=== PATIENT | female | born 1975 | race African-American/Black ===

== ENCOUNTER 2016-08-17 19:48 | Emergency (ER) | payer OTHER ==
[~2016-08-17] VITALS: Ht 165.1 cm; Wt 54.4 kg
[~2016-08-17 19:48] MED LIST: ACETAMINOPHEN-1 EAC1 ORAL; AZITHROMYCIN250 MG ORAL; FERROUS SULFAT325 MG PO; FLEXERIL10 MG PO; IBUPROFEN600 MG ORAL; NAPROXEN375 MG PO; NEXAFED30 MG ORAL; NKM; NORCO 5-325 TA1 EACH ORAL; PERCOCET 5-3251 EACH ORAL; TRAMADOL HCL50 MG ORAL; VICODIN 5-5001 EACH PO
[2016-08-17] MEDS ORDERED: Ketorolac 30mg Inj IM ONE (20:15)
[2016-08-17] MEDS ORDERED: Methocarbamol 750mg tab ORAL ONE (20:15)
[2016-08-17 20:45] VITALS: BP 115/76
[2016-08-17] MEDS ORDERED: ROBAXIN-750750 MG PO (21:03)
[2016-08-17] MEDS ORDERED: IBUPROFEN600 MG ORAL (21:03)
[2016-08-17 21:05] VITALS: BP 115/76
--- NOTE | 2016-08-17 21:24 | Emergency Room Report ---
History of Present Illness General Chief Complaint: Dyspnea/Respdistress Source: Patient Present Illness HPI The patient is a 40-year-old female presenting with back pain which began this morning. The patient states the pain is worse with deep breaths and touch. Pain is described as an 8/10 sharp sensation it does not radiate from the mid back. The patient denies any known reason for the pain including any new activities or injury. The patient has not tried any medications for this. She denies any medical history including DVT. Patient denies other symptoms including N, V, F, chills, cough, hemoptysis. Pt denies recent travel, OCP use, long periods of inactivity. Allergies: Coded Allergies: No Known Allergies (Unverified , 03/13/12) Patient History Past Medical History: see triage record Pertinent Family History: none Last Menstrual Period: 08/02/16 Now: No Reviewed Nursing Documentation: PMH: Agreed, PSxH: Agreed Nursing Documentation-PMH Past Medical History: No Stated History Review of Systems All Other Systems: negative except mentioned in HPI Physical Exam Vital Signs Date Time Temp Pulse Resp B/P Pulse Ox O2 Delivery O2 Flow Rate FiO2 08/17/16 19:54 98.2 70 16 115/76 100 Room Air Sp02 EP Interpretation: reviewed, normal General Appearance: no apparent distress, alert, GCS 15, non-toxic Head: normocephalic, atraumatic Eyes: bilateral eye PERRL, bilateral eye normal inspection ENT: hearing grossly normal, normal pharynx, no angioedema, normal voice Neck: full range of motion, supple/symm/no masses Respiratory: chest non-tender, lungs clear, normal breath sounds, no respiratory distress, no accessory muscle use, no wheezing, speaking full sentences Cardiovascular #1: regular rate, rhythm, no edema Musculoskeletal: back normal, gait/station normal, normal range of motion, no calf tenderness, tender - soft touch TTP over bilat thoracic paraspinous muscles Neurologic: alert, oriented x3, responsive, motor strength/tone normal, sensory intact, normal gait, speech normal Psychiatric: judgement/insight normal, memory normal, mood/affect normal, no suicidal/homicidal ideation Medical Decision Making PA Attestation Dr. Marshall is my supervising physician. Patient management was discussed with my supervising physician Diagnostic Impression: Primary Impression: Muscle strain ER Course The patient is a 40-year-old female presenting with back pain which began this morning. Differential diagnoses considered but not limited to: Bronchitis, pneumonia, PE , muscle strain Physical exam: Heart rate within normal limits. No tachypnea. Afebrile. No apparent distress. Lungs are clear to auscultation bilaterally. No respiratory distress. There is tenderness with soft palpation over the thoracic paraspinous muscles. No obvious deformity. No discoloration Wells score of 0 Chest x-ray is unremarkable The patient is given Toradol and Robaxin for pain and is feeling better Patient discharged home with a prescription for Robaxin and Motrin. ER precautions are given Chest X-Ray Diagnostic Results EP Interpretation: Yes Findings: no consolidation, no effusion, no pneumothorax, no acute cardiopulmonary disease Number of Views: 1 PA Scribe Text I am acting as scribe for my supervising physician. My supervising physician's interpretation of the chest xrays are there is no consolidation, no effusion, no acute cardiopulmonary disease, no pneumothorax Last Vital Signs Date Time Temp Pulse Resp B/P Pulse Ox O2 Delivery O2 Flow Rate FiO2 08/17/16 21:05 98.2 16 115/76 100 Room Air 08/17/16 20:45 70 Status: improved Disposition: HOME, SELF-CARE Condition: Improved Scripts Ibuprofen* (MOTRIN*) 600 Mg Tablet 600 MG ORAL Q8H Y for For Pain, #30 TAB 0 Refills Prov: NIC PERRY.A. 08/17/16 Methocarbamol* (ROBAXIN-750*) 750 Mg Tablet 750 MG PO TID, #21 TAB 0 Refills Prov: NIC PERRY.Ofe 08/17/16 Patient Instructions: Muscle Strain Additional Instructions: I discussed my findings with the patient. All questions and concerns have been answered. Treatment and medication compliance have been addressed. I advised the patient that they need to follow up with PMD in 3-5 days. Return to ED if symptoms worsen, new symptoms arise, or if needed for any reason. Patient verbalized understanding of discharge instructions. NIC PERRY Aug 17, 2016 21:24
--- NOTE | 2016-08-18 10:06 | Diagnostic Imaging Report ---
Indication: PAIN Technique: XRAY CHEST 1 V Comparison: None. Findings: The cardiomediastinal silhouette is normal. The lungs are clear. There is no evidence of pleural fluid. The bones are unremarkable. Impression: Normal chest.
== END 2016-08-17 21:05 | disposition home or self-care (01) ==
LOC: EMR 20:51
DX: S29.012A Strain of muscle and tendon of back wall of thorax, initial encounter (principal); X58.XXXA Exposure to other specified factors, initial encounter; Y93.9 Activity, unspecified; Y92.9 Unspecified place or not applicable
CPT/HCPCS: 71010; 96372; 99284; J1885

== ENCOUNTER 2017-03-20 00:47 | Emergency (ER) | payer MEDICAID, OTHER ==
[~2017-03-20] VITALS: Ht 165.1 cm; Wt 54.4 kg
[~2017-03-20 00:47] MED LIST changes: +ROBAXIN-750750 MG PO
[2017-03-20 01:41] VITALS: BP 115/82
[2017-03-20 02:14] LABS: BASOPHILS % (AUTO) 0.8 % (0.0-2.0); EOSINOPHILS % (AUTO) 5.1 % (0.0-3.0); LYMPHOCYTES % (AUTO) 39.1 % (20.0-45.0); MEAN CORPUSCULAR HEMOGLOBIN 29.1 PG (27.0-31.0); MEAN CORPUSCULAR VOLUME 91 FL (80-99); MEAN PLATELET VOLUME 7.4 FL (6.5-10.1); MONOCYTES % (AUTO) 10.6 % (1.0-10.0); NEUTROPHILS % (AUTO) 44.4 % (45.0-75.0); PLATELET COUNT 261 K/UL (150-450); RED BLOOD COUNT 3.81 M/UL (4.20-5.40); RED CELL DISTRIBUTION WIDTH 12.1 % (11.6-14.8); WHITE BLOOD COUNT 4.7 K/UL (4.8-10.8)
--- NOTE | 2017-03-20 02:33 | Emergency Room Report ---
History of Present Illness General Chief Complaint: Pain Source: Patient Present Illness HPI A 41-year-old female with a history of heavy menstrual bleeding with anemia resulting from it. She is currently on control. She presents with chief complaint of right breast pain from axilla to the nipple area. On and off. Mild pain now. Onset for the last 4 days. No fever or chills. Her breast slightly engorged bilaterally. Also more sweating underneath the breasts. Allergies: Coded Allergies: No Known Allergies (Unverified , 03/13/12) Patient History Past Medical History: see triage record, old chart reviewed Past Surgical History: other Pertinent Family History: none Social History: Denies: smoking Last Menstrual Period: 4 months Now: No Immunizations: other Reviewed Nursing Documentation: PMH: Agreed, PSxH: Agreed Nursing Documentation-PMH Past Medical History: No Stated History Review of Systems Eye: Denies: eye pain, blurred vision ENT: Denies: ear pain, nose congestion, throat swelling Respiratory: Denies: cough, shortness of breath Cardiovascular: Denies: chest pain, palpitations Gastrointestinal: Denies: abdominal pain, diarrhea, nausea, vomiting Musculoskeletal: Denies: back pain, joint pain Skin: Denies: rash Neurological: Denies: headache, numbness Endocrine: Denies: increased thirst, increased urine Hematologic/Lymphatic: Denies: easy bruising All Other Systems: negative except mentioned in HPI Physical Exam Vital Signs Date Time Temp Pulse Resp B/P (MAP) Pulse Ox O2 Delivery O2 Flow Rate FiO2 03/20/17 01:08 98.1 82 17 115/82 99 Room Air vitals normal Sp02 EP Interpretation: reviewed, normal General Appearance: well appearing, no apparent distress, alert Head: normocephalic, atraumatic Eyes: bilateral eye PERRL, bilateral eye EOMI ENT: hearing grossly normal, normal pharynx Neck: full range of motion, supple, no meningismus Respiratory: chest non-tender, lungs clear, normal breath sounds, other - Breast exams: Exam done with female nurse as supervisor veneer. No adenopathy. No nipple retraction. No redness. No tenderness. Normal exam of both breasts. Cardiovascular #1: regular rate, rhythm, no murmur Gastrointestinal: normal bowel sounds, non tender, no mass, no organomegaly, no bruit, non-distended Musculoskeletal: back normal, gait/station normal, normal range of motion Psychiatric: mood/affect normal Skin: warm/dry Medical Decision Making Diagnostic Impression: Primary Impression: Anemia Qualified Codes: D64.9 - Anemia, unspecified Additional Impression: Breast pain in female ER Course Patient presents with breast pain. No evidence of any abnormality on my exam. She may benefit from a mammography. This can be done as an outpatient. No evidence of infection. Could also be hormonal. Last Vital Signs Date Time Temp Pulse Resp B/P (MAP) Pulse Ox O2 Delivery O2 Flow Rate FiO2 03/20/17 01:41 98.1 88 17 115/82 99 Room Air Status: improved Disposition: HOME, SELF-CARE Condition: Stable Referrals: [facility] (PCP) Patient Instructions: PAIN, Uncertain Cause (Acute) Additional Instructions: followup with your Dr. in 7 days. You may benefit from another mammogram. Return if worse. ISIDORO GAMING M.D. Mar 20, 2017 02:33
[2017-03-20 02:36] VITALS: BP 115/82
== END 2017-03-20 02:36 | disposition home or self-care (01) ==
LOC: EMR 01:30
DX: D64.9 Anemia, unspecified (principal); N64.4 Mastodynia; N92.0 Excessive and frequent menstruation with regular cycle
CPT/HCPCS: 36415; 85025; 99282

== ENCOUNTER 2017-04-05 09:09 | Emergency (ER) | payer MEDICAID, OTHER ==
[~2017-04-05] VITALS: Ht 165.1 cm; Wt 54.4 kg
[2017-04-05] MEDS ORDERED: ZOFRAN ODT4 MG ORAL (10:16)
[2017-04-05] MEDS ORDERED: IBUPROFEN600 MG ORAL (10:16)
[2017-04-05 10:27] VITALS: BP 132/70
--- NOTE | 2017-04-05 15:20 | Emergency Room Report ---
History of Present Illness General Chief Complaint: Upper Respiratory Illness Source: Patient Present Illness HPI 41 yo f no sig pmhx p/w 2 weeks of cough, runny nose, now with 1 day of n/v yetserday. clear nasal discharge, non productive cough. has been taking vitamins to help. states she wants to feel better to be able to go to work. denies fever chills cp sob. 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) no recent travel Allergies: Coded Allergies: No Known Allergies (Unverified , 03/13/12) Patient History Past Medical History: see triage record Past Surgical History: none Pertinent Family History: none Last Menstrual Period: 2-3 months Now: No Reviewed Nursing Documentation: PMH: Agreed, PSxH: Agreed Review of Systems All Other Systems: negative except mentioned in HPI Physical Exam Vital Signs Date Time Temp Pulse Resp B/P (MAP) Pulse Ox O2 Delivery O2 Flow Rate FiO2 04/05/17 09:13 98.1 94 18 123/71 98 Room Air Sp02 EP Interpretation: reviewed, normal General Appearance: normal inspection, well appearing, no apparent distress, alert, GCS 15, non-toxic Head: normocephalic, atraumatic Eyes: bilateral eye normal inspection, bilateral eye PERRL, bilateral eye EOMI ENT: normal ENT inspection, normal pharynx, normal voice, moist mucus membranes Neck: normal inspection, full range of motion, supple Respiratory: normal inspection, lungs clear, normal breath sounds, no respiratory distress, no retraction, no wheezing, speaking full sentences, chest symmetrical Cardiovascular #1: normal inspection, regular rate, rhythm, no edema, normal capillary refill Cardiovascular #2: 2+ radial (R), 2+ radial (L) Gastrointestinal: normal inspection, non tender, soft, non-distended, no guarding Musculoskeletal: normal inspection, back normal, normal range of motion, non- tender Neurologic: normal inspection, alert, oriented x3, responsive, motor strength/ tone normal, sensory intact, normal gait, speech normal Psychiatric: normal inspection, judgement/insight normal, memory normal Skin: normal inspection, normal color, no rash, warm/dry, well hydrated, normal turgor Medical Decision Making Diagnostic Impression: Primary Impression: Viral syndrome ER Course 41 yo f with 2 weeks of cough runny nose, n/v x 2days appears well nontoxic not c/w pneumonia -- lungs clear ER course stable in ED Dispo: DCed home with short course of zofran, motrin fu with pmd in 1 week Last Vital Signs Date Time Temp Pulse Resp B/P (MAP) Pulse Ox O2 Delivery O2 Flow Rate FiO2 04/05/17 10:27 98.2 77 18 132/70 97 Room Air Disposition: HOME, SELF-CARE Condition: Stable Scripts Ibuprofen* (MOTRIN*) 600 Mg Tablet 600 MG ORAL Q8H Y for For Pain, #30 TAB 0 Refills Prov: Daxa Ruiz M.D. 04/05/17 Ondansetron Odt* (ZOFRAN ODT*) 4 Mg Tab.rapdis 4 MG ORAL Q6H Y for Nausea & Vomiting, #5 TAB 0 Refills Prov: Daxa Ruiz M.D. 04/05/17 Patient Instructions: Viral Respiratory Infection Daxa Ruiz M.D. Apr 05, 2017 15:20
== END 2017-04-05 10:27 | disposition home or self-care (01) ==
LOC: EMR 09:35
DX: B34.9 Viral infection, unspecified (principal)
CPT/HCPCS: 99284

== ENCOUNTER 2017-04-17 11:14 | Emergency (ER) | payer OTHER ==
[~2017-04-17] VITALS: Ht 165.1 cm; Wt 54.4 kg
[~2017-04-17 11:14] MED LIST changes: +ZOFRAN ODT4 MG ORAL
[2017-04-17] MEDS ORDERED: Metoclopramide 10mg/2ml Inj IVP ONE (11:45)
[2017-04-17] MEDS ORDERED: Ketorolac 30mg Inj IV ONE (12:00)
[2017-04-17 12:14] LABS: HEMATOCRIT 39.9 % (37.0-47.0); MEAN CORPUSCULAR VOLUME 93 FL (80-99); PLATELET COUNT 305 K/UL (150-450); RED CELL DISTRIBUTION WIDTH 12.3 % (11.6-14.8); WHITE BLOOD COUNT 10.5 K/UL (4.8-10.8)
[2017-04-17 12:25] LABS: ALANINE AMINOTRANSFERASE 16 U/L (12-78); ALBUMIN 3.7 G/DL (3.4-5.0); ALKALINE PHOSPHATASE 63 U/L (46-116); ANION GAP 9 mmol/L (5-15); ASPARTATE AMINO TRANSFERASE 20 U/L (15-37); BILIRUBIN,TOTAL 0.4 MG/DL (0.2-1.0); BLOOD UREA NITROGEN 13 mg/dL (7-18); CALCIUM 9.1 MG/DL (8.5-10.1); CARBON DIOXIDE 27 MMOL/L (21-32); CHLORIDE 106 MMOL/L (98-107); CREATININE 0.9 MG/DL (0.55-1.30); SODIUM 142 MMOL/L (136-145)
[2017-04-17] MEDS ORDERED: ZOFRAN ODT4 MG ORAL (12:46)
[2017-04-17 12:57] VITALS: BP 126/87
[2017-04-17 12:59] VITALS: BP 126/87
--- NOTE | 2017-04-18 08:39 | Emergency Room Report ---
History of Present Illness General Chief Complaint: Vomiting Source: Patient, Medical Record Present Illness HPI Patient presents with complaints of nausea vomiting Patient reports that she ate a fruit, just before the symptoms started Vomited several times This happened this afternoon Patient has not developed a headache as well Denies any neck pain or photophobia Denies any chest pain or shortness of breath denies any lower abdominal pain denies any diarrhea Allergies: Coded Allergies: No Known Allergies (Unverified , 03/13/12) Patient History Past Medical History: see triage record Pertinent Family History: none Last Menstrual Period: on control pill Reviewed Nursing Documentation: PMH: Agreed, PSxH: Agreed Nursing Documentation-PMH Past Medical History: No History, Except For Review of Systems All Other Systems: negative except mentioned in HPI Physical Exam Vital Signs Date Time Temp Pulse Resp B/P (MAP) Pulse Ox O2 Delivery O2 Flow Rate FiO2 04/17/17 11:26 98.2 101 18 126/87 100 Room Air Sp02 EP Interpretation: reviewed, normal General Appearance: well appearing, no apparent distress Head: normocephalic, atraumatic Eyes: bilateral eye PERRL, bilateral eye EOMI ENT: hearing grossly normal, normal pharynx, TMs + canals normal, uvula midline Neck: full range of motion, supple, no meningismus, no bony tend Respiratory: lungs clear, normal breath sounds, no rhonchi, no respiratory distress, no retraction, no accessory muscle use Cardiovascular #1: normal peripheral pulses, regular rate, rhythm, no edema, no gallop, no JVD, no murmur Gastrointestinal: normal bowel sounds, non tender, soft, no mass, no organomegaly, non-distended, no guarding, no hernia, no pulsatile mass, no rebound Genitourinary: no CVA tenderness Musculoskeletal: normal inspection Neurologic: oriented x3, responsive, filter washer and presser III-XII nml as tested, motor strength/ tone normal, sensory intact Psychiatric: mood/affect normal Skin: normal color, no rash, warm/dry, palpation normal Lymphatic: normal inspection, no adenopathy Medical Decision Making Diagnostic Impression: Primary Impression: Vomiting ER Course With the history exam and presentation, multiple differentials considered, including but not limited to appendicitis, gastritis, cholecystitis, diverticulitis Patient's blood work is appropriate Patient has done better with acute intervention it appears the headache is likely related to the vomiting as well And the patient will have close followup Labs Test 04/17/17 11:45 White Blood Count 10.5 K/UL (4.8-10.8) Red Blood Count 4.30 M/UL (4.20-5.40) Hemoglobin 12.0 G/DL (12.0-16.0) Hematocrit 39.9 % (37.0-47.0) Mean Corpuscular Volume 93 FL (80-99) Mean Corpuscular Hemoglobin 28.0 PG (27.0-31.0) Mean Corpuscular Hemoglobin Concent 30.2 G/DL (32.0-36.0) Red Cell Distribution Width 12.3 % (11.6-14.8) Platelet Count 305 K/UL (150-450) Mean Platelet Volume 6.6 FL (6.5-10.1) Neutrophils (%) (Auto) % (45.0-75.0) Lymphocytes (%) (Auto) % (20.0-45.0) Monocytes (%) (Auto) % (1.0-10.0) Eosinophils (%) (Auto) % (0.0-3.0) Basophils (%) (Auto) % (0.0-2.0) Differential Total Cells Counted 100 Neutrophils % (Manual) 86 % (45-75) Lymphocytes % (Manual) 8 % (20-45) Monocytes % (Manual) 4 % (1-10) Eosinophils % (Manual) 1 % (0-3) Basophils % (Manual) 0 % (0-2) Band Neutrophils 1 % (0-8) Platelet Estimate Adequate Platelet Morphology Normal Red Blood Cell Morphology Normal Sodium Level 142 MMOL/L (136-145) Potassium Level 4.0 MMOL/L (3.5-5.1) Chloride Level 106 MMOL/L (98-107) Carbon Dioxide Level 27 MMOL/L (21-32) Anion Gap 9 mmol/L (5-15) Blood Urea Nitrogen 13 mg/dL (7-18) Creatinine 0.9 MG/DL (0.55-1.30) Estimat Glomerular Filtration Rate > 60 mL/min (>60) Glucose Level 88 MG/DL (74-106) Calcium Level 9.1 MG/DL (8.5-10.1) Total Bilirubin 0.4 MG/DL (0.2-1.0) Aspartate Amino Transf (AST/SGOT) 20 U/L (15-37) Alanine Aminotransferase (ALT/SGPT) 16 U/L (12-78) Alkaline Phosphatase 63 U/L (46-116) Total Protein 7.5 G/DL (6.4-8.2) Albumin 3.7 G/DL (3.4-5.0) Globulin 3.8 g/dL Albumin/Globulin Ratio 1.0 (1.0-2.7) Lipase 125 U/L (73-393) Last Vital Signs Date Time Temp Pulse Resp B/P (MAP) Pulse Ox O2 Delivery O2 Flow Rate FiO2 04/17/17 12:59 98.2 78 18 126/87 100 Room Air Status: improved Disposition: HOME, SELF-CARE Condition: Improved Scripts Ondansetron Odt* (ZOFRAN ODT*) 4 Mg Tab.rapdis 4 MG ORAL Q6H Y for Nausea & Vomiting, #15 TAB 0 Refills Prov: MASON NELSON D.O. 04/17/17 Referrals: [facility] (PCP) Patient Instructions: Nausea and Vomiting, Adult Additional Instructions: Patient is provided with the discharge instructions notified to follow up with primary doctor in the next 2-3 days otherwise return to the er with any worsening symptoms. Please note that this report is being documented using [employer] technology. This can lead to erroneous entry secondary to incorrect interpretation by the dictating instrument. MASON NELSON D.O. Apr 18, 2017 08:39
== END 2017-04-17 13:01 | disposition home or self-care (01) ==
LOC: EMR 12:27
DX: R11.2 Nausea with vomiting, unspecified (principal)
CPT/HCPCS: 36415; 80053; 83690; 85007; 85025; 96361; 96374; 99284; J2765

== ENCOUNTER 2017-11-26 14:28 | Emergency (ER) | payer MEDICAID, OTHER ==
[~2017-11-26] VITALS: Ht 165.1 cm; Wt 54.4 kg
[2017-11-26 14:58] VITALS: BP 137/84
[2017-11-26] MEDS ORDERED: Albuterol ud Inhalation HHN ONE (15:00)
[2017-11-26] MEDS ORDERED: Ipratropium 0.02% Inh Soln 2.5ml UD HHN ONE (15:00)
[2017-11-26] MEDS ORDERED: Acetaminophen 500mg (ES) tab ORAL ONE (15:15)
[2017-11-26] MEDS ORDERED: ALBUTEROL SULF8.5 GM INH (15:50)
[2017-11-26] MEDS ORDERED: AMOXICILLIN500 MG ORAL (15:50)
[2017-11-26] MEDS ORDERED: PREDNISONE20 MG ORAL (15:50)
[2017-11-26] MEDS ORDERED: PROMETHAZINE-C118 M1 ORAL (15:50)
[2017-11-26 16:06] VITALS: BP 125/86
[2017-11-26 16:07] VITALS: BP 137/84
--- NOTE | 2017-11-26 17:23 | Emergency Room Report ---
History of Present Illness General Chief Complaint: Dyspnea/Respdistress Source: Patient Present Illness HPI 42-year-old female presents ED for evaluation. States that for 1 month she has had a cough, chest tightness. Cough is productive with yellowish phlegm. States cough is worse at night. Denies fevers or chills. Denies sick contacts or recent travel. States she is undergoing a lot of stress recently as 2 of her sisters have recently . No other aggravating relieving factors. Denies any other associated symptoms Allergies: Coded Allergies: No Known Allergies (Unverified , 03/13/12) Patient History Past Medical History: none Past Surgical History: none Pertinent Family History: none Social History: Denies: smoking, alcohol use, drug use Last Menstrual Period: 10/26/17 Now: No Immunizations: UTD Reviewed Nursing Documentation: PMH: Agreed; PSxH: Agreed Review of Systems All Other Systems: negative except mentioned in HPI Physical Exam Vital Signs Date Time Temp Pulse Resp B/P (MAP) Pulse Ox O2 Delivery O2 Flow Rate FiO2 11/26/17 13:15 11/26/17 13:15 11/26/17 14:35 98.6 137/84 98.6 Sp02 EP Interpretation: reviewed, normal General Appearance: no apparent distress, alert, GCS 15, non-toxic Head: normocephalic Eyes: bilateral eye normal inspection, bilateral eye PERRL ENT: normal ENT inspection Neck: normal inspection Respiratory: chest non-tender, lungs clear, decreased breath sounds, speaking full sentences Cardiovascular #1: regular rate, rhythm, no edema Gastrointestinal: normal inspection Rectal: deferred Genitourinary: no CVA tenderness Musculoskeletal: normal inspection Neurologic: alert, oriented x3, responsive, motor strength/tone normal, sensory intact, speech normal Psychiatric: normal inspection Skin: normal inspection Lymphatic: normal inspection Medical Decision Making Diagnostic Impression: Primary Impression: Atypical pneumonia ER Course Hospital Course 42-year-old female presents ED complaining of cough, chest tightness x 1 month Differential diagnoses include: URI, pharyngitis, otitis media, asthma Clinical course Patient placed on stretcher. After initial history, physical exam reveals a female in no acute distress. Bilateral TM unremarkable. No pharyngeal erythema. No tonsillar exudates. No lymphadenopathy. slightly reduced breath sounds. i ordered nebs, prednisone. on reassessment she feels better.breath sounds improved given prolonged symptoms (1 month) we will treat as atypical pneumonia Diagnosis - atypical pneumonia Stable and discharged home with Rx albuterol, prednisone, promethazine/codeine, amoxicillin. Instructed to followup with PMD. Return to ED if symptoms recur or worsen Last Vital Signs Date Time Temp Pulse Resp B/P (MAP) Pulse Ox O2 Delivery O2 Flow Rate FiO2 11/26/17 16:07 98.6 18 137/84 100 Room Air 98.6 11/26/17 16:06 80 Status: improved Disposition: HOME, SELF-CARE Condition: Stable Scripts Codeine/Promethazine Hcl* (PROMETHAZINE-CODEINE SYRUP*) 118 Ml Syrup 5 ML ORAL Q6H PRN for For Cough, #118 ML 0 Refills Prov: Glenn Marshall MD 11/26/17 Albuterol Sulfate* (ALBUTEROL SULFATE MDI*) 8.5 Gm Hfa.aer.ad 2 PUFF INH Q6H, #1 EA 0 Refills Prov: Glenn Marshall MD 11/26/17 Prednisone* (PREDNISONE*) 20 Mg Tablet 40 MG ORAL DAILY, #10 TAB Prov: Glenn Marshall MD 11/26/17 Amoxicillin* (AMOXIL*) 500 Mg Capsule 500 MG ORAL THREE TIMES A DAY, #21 CAP Prov: Glenn Marshall MD 11/26/17 Patient Instructions: Community-Acquired Pneumonia, Adult, Rqnr-rl-Soca Glenn Marshall MD Nov 26, 2017 17:23
== END 2017-11-26 16:10 | disposition home or self-care (01) ==
LOC: EMR 15:10
DX: J18.9 Pneumonia, unspecified organism (principal)
CPT/HCPCS: 94640; 94664; 99284; J7512

== ENCOUNTER 2018-02-14 08:35 | Emergency (ER) | payer MEDICAID, OTHER ==
[~2018-02-14] VITALS: Ht 165.1 cm; Wt 56.7 kg
[~2018-02-14 08:35] MED LIST changes: +ALBUTEROL SULF8.5 GM INH; +AMOXICILLIN500 MG ORAL; +PREDNISONE20 MG ORAL; +PROMETHAZINE-C118 M1 ORAL
[2018-02-14 08:49] VITALS: BP 119/78
[2018-02-14 09:52] LABS: APPEARANCE,URINE CLEAR; BILIRUBIN, URINE NEGATIVE (NEGATIVE); COLOR,URINE PALE YELLOW; GLUCOSE, URINE (UA) NEGATIVE (NEGATIVE); KETONES,URINE NEGATIVE (NEGATIVE); LEUKOCYTE ESTERASE ,URINE 1+ (NEGATIVE); NITRITE,URINE NEGATIVE (NEGATIVE); PH,URINE 5 (4.5-8.0); PROTEIN,URINE NEGATIVE (NEGATIVE); UROBILINOGEN,URINE NORMAL MG/DL (0.0-1.0)
[2018-02-14 10:29] VITALS: BP 122/71
--- NOTE | 2018-02-14 11:09 | Emergency Room Report ---
History of Present Illness General Chief Complaint: Female Urogenital Problems Source: Patient Present Illness HPI Patient is a 42-year-old female presented after increased urinary frequency. Patient was having increased a right flank pain for the past few days. Patient reports having similar symptoms in the past. She reports having some previous diagnosis of urinary stones. She denies any fever she denies any vomiting. She reports having pain to the right lower abdomen which did not radiate. She denies having any vomiting or diarrhea she denies recent travel. The pain radiated to her back. Allergies: Coded Allergies: No Known Allergies (Unverified , 03/13/12) Patient History Past Medical History: see triage record Last Menstrual Period: 01/26/18 Reviewed Nursing Documentation: PMH: Agreed; PSxH: Agreed Nursing Documentation-PMH Past Medical History: No Stated History Review of Systems All Other Systems: negative except mentioned in HPI Physical Exam Vital Signs Date Time Temp Pulse Resp B/P (MAP) Pulse Ox O2 Delivery O2 Flow Rate FiO2 02/14/18 08:40 98.1 84 18 119/78 99 Room Air 98.1 Sp02 EP Interpretation: reviewed, normal General Appearance: normal inspection, well appearing, no apparent distress, alert, GCS 15, non-toxic Head: atraumatic ENT: normal ENT inspection, hearing grossly normal, normal voice Neck: normal inspection, full range of motion, supple, no bony tend Respiratory: normal inspection, lungs clear, normal breath sounds, no respiratory distress, no retraction, no wheezing Cardiovascular #1: regular rate, rhythm, no edema Gastrointestinal: normal inspection, normal bowel sounds, soft, no guarding, no hernia Genitourinary: no CVA tenderness Musculoskeletal: normal inspection, back normal, normal range of motion Neurologic: normal inspection, alert, oriented x3, responsive, events specialist III-XII nml as tested, speech normal Psychiatric: normal inspection, judgement/insight normal, mood/affect normal Skin: normal inspection, normal color, no rash Medical Decision Making Diagnostic Impression: Primary Impression: Hematuria ER Course Patient presented for abdominal pain. Differential diagnoses included ischemic bowel, appendicitis, perforated viscus, abdominal aortic aneurysm, inferior myocardial infarction, viral gastroenteritis Patient has a benign exam and does not appear to require any further imaging or laboratory testing at this time. The patient does not appear to have peritoneal signs especially with the several days of pain does not appear to have evidence of appendicitis at this time. The urinalysis showed some hematuria. Patient was offered CT imaging of the abdomen pelvis and elected to defer this if she feels worse. The patient is currently afebrile. The urinalysis showed no evidence of definite infection. The patient was advised follow-up with urology as well as [facility]. She is advised to return if she began feeling worse and that she may need CT imaging of pain persists or worsens Labs Test 02/14/18 08:51 Urine Color Pale yellow Urine Appearance Clear Urine pH 5 (4.5-8.0) Urine Specific [place] 1.015 (1.005-1.035) Urine Protein Negative (NEGATIVE) Urine Glucose (UA) Negative (NEGATIVE) Urine Ketones Negative (NEGATIVE) Urine Blood 4+ (NEGATIVE) Urine Nitrite Negative (NEGATIVE) Urine Bilirubin Negative (NEGATIVE) Urine Urobilinogen Normal MG/DL (0.0-1.0) Urine Leukocyte Esterase 1+ (NEGATIVE) Urine RBC 2-4 /HPF (0 - 2) Urine WBC 0-2 /HPF (0 - 2) Urine Squamous Epithelial Cells Occasional /LPF Urine Bacteria None /HPF (NONE) Urine HCG, Qualitative Negative (NEGATIVE) Last Vital Signs Date Time Temp Pulse Resp B/P (MAP) Pulse Ox O2 Delivery O2 Flow Rate FiO2 02/14/18 10:29 98.3 82 16 122/71 100 Room Air 98.1 Status: improved Disposition: HOME, SELF-CARE Condition: Stable Patient Instructions: Eladio, Adult Westley Matta MD Feb 14, 2018 11:09
== END 2018-02-14 10:33 | disposition home or self-care (01) ==
LOC: EMR 08:50
DX: R31.9 Hematuria, unspecified (principal)
CPT/HCPCS: 81003; 81025; 82962; 99283

== ENCOUNTER 2018-02-16 14:38 | Emergency (ER) | payer OTHER ==
[~2018-02-16] VITALS: Ht 167.6 cm; Wt 56.7 kg
[2018-02-16 14:44] VITALS: BP 126/81
[2018-02-16] MEDS ORDERED: NKM (14:49)
[2018-02-16 15:36] LABS: ANION GAP 10 mmol/L (5-15); BLOOD UREA NITROGEN 16 mg/dL (7-18); CALCIUM 9.2 MG/DL (8.5-10.1); CARBON DIOXIDE 25 MMOL/L (21-32); CHLORIDE 102 MMOL/L (98-107); CREATININE 0.9 MG/DL (0.55-1.30); POTASSIUM 3.8 MMOL/L (3.5-5.1); SODIUM 137 MMOL/L (136-145)
[2018-02-16 15:41] LABS: ALANINE AMINOTRANSFERASE 15 U/L (12-78); ALBUMIN 4.1 G/DL (3.4-5.0); ALKALINE PHOSPHATASE 63 U/L (46-116); ASPARTATE AMINO TRANSFERASE 21 U/L (15-37); BILIRUBIN,TOTAL 0.7 MG/DL (0.2-1.0)
[2018-02-16 15:46] LABS: EOSINOPHILS % (AUTO) 2.6 % (0.0-3.0); HEMOGLOBIN 10.2 G/DL (12.0-16.0); LYMPHOCYTES % (AUTO) 30.1 % (20.0-45.0); MEAN CORPUSCULAR VOLUME 82 FL (80-99); NEUTROPHILS % (AUTO) 58.2 % (45.0-75.0); PLATELET COUNT 273 K/UL (150-450); RED BLOOD COUNT 4.02 M/UL (4.20-5.40); RED CELL DISTRIBUTION WIDTH 13.7 % (11.6-14.8)
--- NOTE | 2018-02-16 15:47 | Emergency Room Report ---
History of Present Illness General Chief Complaint: Abdominal Pain Source: Patient Present Illness HPI This patient complains of right lower quadrant pain. She states that she was seen a couple days ago here in the emergency department for the same symptoms. She states that she does continue to have pain in her right lower quadrant of her abdomen. She states that the pain is constant. She states she also developed diarrhea. She states she has had poor appetite and has been fatigued. She denies dysuria or hematuria. She has fever or chills. She denies nausea or vomiting. She has no other complaints. Allergies: Coded Allergies: No Known Allergies (Unverified , 03/13/12) Patient History Past Medical History: none, see triage record Social History: Reports: alcohol use - Occassional; Denies: smoking, drug use Now: No Reviewed Nursing Documentation: PMH: Agreed; PSxH: Agreed Nursing Documentation-PMH Past Medical History: No History, Except For Review of Systems All Other Systems: negative except mentioned in HPI Physical Exam Vital Signs Date Time Temp Pulse Resp B/P (MAP) Pulse Ox O2 Delivery O2 Flow Rate FiO2 02/16/18 14:44 98.0 77 17 126/81 98 Room Air 98.1 Sp02 EP Interpretation: reviewed, normal General Appearance: no apparent distress, alert, GCS 15, non-toxic Head: normocephalic, atraumatic Eyes: bilateral eye PERRL, bilateral eye other - Strabysmus ENT: hearing grossly normal, normal pharynx, no angioedema, normal voice Neck: full range of motion, supple/symm/no masses Respiratory: chest non-tender, lungs clear, normal breath sounds, no respiratory distress, no retraction, no accessory muscle use, speaking full sentences Cardiovascular #1: regular rate, rhythm, no edema Gastrointestinal: normal bowel sounds, soft, non-distended, no guarding, no rebound, tenderness - TTP RLQ and R. pelvis Rectal: deferred Musculoskeletal: back normal, gait/station normal, normal range of motion, non- tender Neurologic: alert, oriented x3, responsive, motor strength/tone normal, sensory intact, speech normal Psychiatric: judgement/insight normal, memory normal, mood/affect normal, no suicidal/homicidal ideation Skin: normal color, no rash, warm/dry, well hydrated Lymphatic: no adenopathy Medical Decision Making Diagnostic Impression: Primary Impression: Abdominal pain ER Course This patient has nonspecific abdominal pain. She has had diarrhea may have a mild gastroenteritis. However given the location of the tenderness on exam, I did obtain a CT of the abdomen and pelvis to assess for appendicitis. The CT was negative. There is also no evidence of urinary tract infection or kidney stone. Possibly this patient has an ovarian cyst. However, the patient's abdominal exam is benign and the patient declined a pelvic ultrasound at this time. The patient is a lesbian and does not have initiating intercourse of any sort. She is not concerned about sexually transmitted disease or PID and declined pelvic exam. Overall, the patient's evaluation is reassuring and benign. The patient is given return precautions and follow-up instructions. Laboratory Tests Test 02/16/18 15:13 White Blood Count Pending Red Blood Count Pending Hemoglobin Pending Hematocrit Pending Mean Corpuscular Volume Pending Mean Corpuscular Hemoglobin Pending Mean Corpuscular Hemoglobin Concent Pending Red Cell Distribution Width Pending Platelet Count Pending Mean Platelet Volume Pending Neutrophils (%) (Auto) Pending Lymphocytes (%) (Auto) Pending Monocytes (%) (Auto) Pending Eosinophils (%) (Auto) Pending Basophils (%) (Auto) Pending Urine Color Pending Urine Appearance Pending Urine pH Pending Urine Specific [place] Pending Urine Protein Pending Urine Glucose (UA) Pending Urine Ketones Pending Urine Blood Pending Urine Nitrite Pending Urine Bilirubin Pending Urine Urobilinogen Pending Urine Leukocyte Esterase Pending Urine HCG, Qualitative Pending Sodium Level 137 MMOL/L (136-145) Potassium Level 3.8 MMOL/L (3.5-5.1) Chloride Level 102 MMOL/L (98-107) Carbon Dioxide Level 25 MMOL/L (21-32) Anion Gap 10 mmol/L (5-15) Blood Urea Nitrogen 16 mg/dL (7-18) Creatinine 0.9 MG/DL (0.55-1.30) Estimate Glomerular Filtration Rate > 60 mL/min (>60) Glucose Level 84 MG/DL (74-106) Calcium Level 9.2 MG/DL (8.5-10.1) Total Bilirubin 0.7 MG/DL (0.2-1.0) Aspartate Amino Transferase (AST) 21 U/L (15-37) Alanine Aminotransferase (ALT) 15 U/L (12-78) Alkaline Phosphatase 63 U/L (46-116) Total Protein 8.1 G/DL (6.4-8.2) Albumin 4.1 G/DL (3.4-5.0) Globulin 4.0 g/dL Albumin/Globulin Ratio 1.0 (1.0-2.7) CT/MRI/US Diagnostic Results CT/MRI/US Diagnostic Results : Imaging Test Ordered: CT abd/pelvis Impression No acute findings. See official report. Last Vital Signs Date Time Temp Pulse Resp B/P (MAP) Pulse Ox O2 Delivery O2 Flow Rate FiO2 02/16/18 14:44 98.0 77 17 126/81 98 Room Air 98.1 Status: improved Disposition: HOME, SELF-CARE Condition: Improved Patient Instructions: Abdominal Pain, Adult Susan Weir DO Feb 16, 2018 15:47
[2018-02-16 15:50] LABS: APPEARANCE,URINE CLEAR; BILIRUBIN, URINE NEGATIVE (NEGATIVE); COLOR,URINE PALE YELLOW; GLUCOSE, URINE (UA) NEGATIVE (NEGATIVE); KETONES,URINE NEGATIVE (NEGATIVE); LEUKOCYTE ESTERASE ,URINE NEGATIVE (NEGATIVE); NITRITE,URINE NEGATIVE (NEGATIVE); PH,URINE 5 (4.5-8.0); PROTEIN,URINE NEGATIVE (NEGATIVE); UROBILINOGEN,URINE NORMAL MG/DL (0.0-1.0)
--- NOTE | 2018-02-16 16:51 | Diagnostic Imaging Report ---
Indication: Abdominal pain and diarrhea, right lower quadrant pain Technique: Spiral acquisitions obtained through the abdomen and pelvis. No oral contrast utilized, per emergency room physician request No IV contrast utilized, per referring physician request.. Multiplanar reconstructions were generated. Total dose length product 464.88 mGycm. CTDIvol(s) 10.01 mGy. Dose reduction achieved using automated exposure control Comparison: None Findings: Lack of enteric contrast limits assessment of the GI tract. The appendix is normal. There is no evidence of diverticulosis or diverticulitis. No small bowel distention. No free or loculated intraperitoneal gas or fluid is evident. Distal esophagus, stomach, duodenum are unremarkable. Lack of IV contrast limits assessment of the solid organs. The liver, gallbladder, bile ducts, pancreas, spleen, adrenals, kidneys are all unremarkable. No pelvic mass or adenopathy. No retroperitoneal or mesenteric mass or adenopathy. The included lung bases are clear. The bones are unremarkable. Impression: Essentially unremarkable exam. Note, however, that assessment of the GI tract is limited due to lack of enteric contrast administration The CT scanner at [facility] is accredited by the [employer] and the scans are performed using protocols designed to limit radiation exposure to as low as reasonably achievable to attain images of sufficient resolution adequate for diagnostic evaluation.
[2018-02-16 17:33] VITALS: BP 118/65
== END 2018-02-16 17:33 | disposition home or self-care (01) ==
LOC: EMR 15:05
DX: R10.31 Right lower quadrant pain (principal); R19.7 Diarrhea, unspecified
CPT/HCPCS: 36415; 74176; 80053; 81003; 81025; 85025; 96360; 99284

== ENCOUNTER 2018-10-05 17:53 | Emergency (ER) | payer OTHER ==
[~2018-10-05] VITALS: Ht 165.1 cm; Wt 59.0 kg
[2018-10-05 17:57] VITALS: BP 121/80
--- NOTE | 2018-10-05 18:05 | NUR ---
ED Nurse Note: Patient walked into ED c/o WANG and nausea since 10/01/18. patient reports chronic migraine pain. right now patient took exedrin before coming to ED, so WANG is 0/10, but patient still reports nausea. patient reports night sweats and swollen lympnodes under the armpit that comes and goes for many years. patient reports she has been tolerating liquid diet. patient also reports shortness of breath. patient is alert awake x4 ambulatory steady gait.
--- NOTE | 2018-10-05 18:25 | NUR ---
ED Nurse Note: urine sent to lab
[2018-10-05 18:42] LABS: APPEARANCE,URINE CLEAR; BILIRUBIN, URINE NEGATIVE (NEGATIVE); GLUCOSE, URINE (UA) NEGATIVE (NEGATIVE); KETONES,URINE NEGATIVE (NEGATIVE); LEUKOCYTE ESTERASE ,URINE 1+ (NEGATIVE); NITRITE,URINE NEGATIVE (NEGATIVE); PH,URINE 5 (4.5-8.0); PROTEIN,URINE NEGATIVE (NEGATIVE); UROBILINOGEN,URINE NORMAL MG/DL (0.0-1.0)
[2018-10-05 18:43] LABS: COLOR,URINE YELLOW
--- NOTE | 2018-10-05 19:08 | Emergency Room Report ---
History of Present Illness General Chief Complaint: Nausea Source: Patient Present Illness HPI 42-year-old female presents to the emergency department complaining of reoccurring migraine since Friday. She reports her WANG is currently 2/10 in severity as she recently took OTC Excedrin. Patient has a history of migraine she states they typically relieved with Excedrin Migraine however her symptoms are only mildly reduced and continued to recur. Patient also is reporting urinary frequency she denies dysuria, hematuria, abdominal pain or tenderness. Patient reports nausea she denies history of vomiting she denies blood in the stool or dark tarry stools. She denies fevers or chills. Patient denies neck pain/stiffness or photophobia she also denies a sudden onset of her headache. Denies CP, Palpitations, LOC, AMS, dizziness, Changes in Vision, Sensation, paresthesias, or a sudden severe headache. Allergies: Coded Allergies: No Known Allergies (Unverified , 03/13/12) Patient History Past Medical History: see triage record Past Surgical History: none Pertinent Family History: none Last Menstrual Period: 08/21/18 Now: No Reviewed Nursing Documentation: PMH: Agreed; PSxH: Agreed Nursing Documentation-PMH Past Medical History: No History, Except For Review of Systems All Other Systems: negative except mentioned in HPI Physical Exam Vital Signs Date Time Temp Pulse Resp B/P (MAP) Pulse Ox O2 Delivery O2 Flow Rate FiO2 10/05/18 17:57 98.8 66 19 121/80 97 Room Air Sp02 EP Interpretation: reviewed, normal General Appearance: no apparent distress, alert, GCS 15, non-toxic Head: normocephalic, atraumatic Eyes: bilateral eye normal inspection, bilateral eye PERRL, bilateral eye other - no photophobia ENT: hearing grossly normal, normal voice Neck: full range of motion, no meningismus Respiratory: chest non-tender, lungs clear, normal breath sounds, speaking full sentences Cardiovascular #1: regular rate, rhythm Gastrointestinal: non tender, soft Genitourinary: normal inspection, no CVA tenderness Musculoskeletal: back normal, gait/station normal, normal range of motion, non- tender Neurologic: alert, oriented x3, responsive, motor strength/tone normal, sensory intact, normal gait, speech normal, grossly normal Psychiatric: judgement/insight normal Skin: normal color, no rash, warm/dry, well hydrated Medical Decision Making PA Attestation Dr. Thomas is my supervising Physician whom patient management has been discussed with. Diagnostic Impression: Primary Impression: UTI (urinary tract infection) Qualified Codes: N30.01 - Acute cystitis with hematuria Additional Impression: Headache Qualified Codes: R51 - Headache ER Course 42-year-old female presents to the emergency department complaining of reoccurring migraine since Friday. She reports her WANG is currently 2/10 in severity as she recently took OTC Excedrin. Patient has a history of migraine she states they typically relieved with Excedrin Migraine however her symptoms are only mildly reduced and continued to recur. Patient also is reporting urinary frequency she denies dysuria, hematuria, abdominal pain or tenderness. Patient reports nausea she denies history of vomiting she denies blood in the stool or dark tarry stools. She denies fevers or chills. Patient denies neck pain/stiffness or photophobia she also denies a sudden onset of her headache. Denies CP, Palpitations, LOC, AMS, dizziness, Changes in Vision, Sensation, paresthesias, or a sudden severe headache. Ddx considered but are not limited to migraine, SAH, Pseudomotor Cerebri, Mass lesion, Cluster WANG, Tension WANG, Post lumbar puncture WANG. Vital signs: are WNL, pt. is afebrile H&PE are most consistent with migraine headache- recurrent will r/o UTI ORDERS: -UA: positive for UTI ED INTERVENTIONS: -I do not identify an emergent condition at this time. With current presentation , pt. is stable for close outpatient follow up and conservative treatment. D/ w pt. to return promptly to ED with worsening or new symptoms.- Pt. verbalizes' understanding and agreement with proposed treatment plan.proposed treatment plan. DISCHARGE: At this time pt. is stable for d/c to home. Will provide printed patient care instructions, and any necessary prescriptions. Care plan and follow up instructions have been discussed with the patient prior to discharge. Labs Test 10/05/18 18:21 Urine Color Yellow Urine Appearance Clear Urine pH 5 (4.5-8.0) Urine Specific [place] 1.020 (1.005-1.035) Urine Protein Negative (NEGATIVE) Urine Glucose (UA) Negative (NEGATIVE) Urine Ketones Negative (NEGATIVE) Urine Blood 5+ (NEGATIVE) Urine Nitrite Negative (NEGATIVE) Urine Bilirubin Negative (NEGATIVE) Urine Urobilinogen Normal MG/DL (0.0-1.0) Urine Leukocyte Esterase 1+ (NEGATIVE) Urine RBC 2-4 /HPF (0 - 2) Urine WBC 2-4 /HPF (0 - 2) Urine Squamous Epithelial Cells Few /LPF (NONE/OCC) Urine Bacteria Moderate /HPF (NONE) Urine Yeast Few /HPF (NONE) Last Vital Signs Date Time Temp Pulse Resp B/P (MAP) Pulse Ox O2 Delivery O2 Flow Rate FiO2 10/05/18 17:57 98.8 66 19 121/80 97 Room Air Disposition: HOME, SELF-CARE Condition: Stable Scripts Fluconazole (FLUCONAZOLE) 100 Mg Tablet 100 MG ORAL DAILY, #3 TAB 0 Refills Prov: Kirti Kenny 10/05/18 Nitrofurantoin Monohyd/M-Cryst* (MACROBID 100 MG*) 100 Mg Capsule 100 MG ORAL EVERY 12 HOURS for 5 Days, #10 CAP Prov: Kirti Kenny 10/05/18 Ondansetron Odt* (ZOFRAN ODT*) 4 Mg Tab.rapdis 4 MG BC EVERY 6 HOURS PRN for Nausea & Vomiting, #10 TAB 0 Refills Prov: Kirti Kenny 10/05/18 Referrals: [facility],REFERRING (PCP) Patient Instructions: Urinary Tract Infection, [id number] Additional Instructions: Take medications as directed. Follow up with a Primary Care Provider in 3-5 days, even if your symptoms have resolved. --Please review list of primary care clinics, if you do not already have a primary care provider Return sooner to ED if new symptoms occur, or current symptoms become worse. - Please note that this Emergency Department Report was dictated using [employer] electronics technician technology software, occasionally this can lead to erroneous entry secondary to interpretation by the dictation equipment. Kirti Kenny Oct 05, 2018 19:08
[2018-10-05] MEDS ORDERED: FLUCONAZOLE100 MG ORAL (19:09)
[2018-10-05] MEDS ORDERED: NITROFURANTOIN100 M2 ORAL (19:09)
[2018-10-05] MEDS ORDERED: ONDANSETRON ODT4 MG BC (19:09)
--- NOTE | 2018-10-05 19:16 | NUR ---
HAND-OFF: Report given to Mary RN. patient is stable in bed
--- NOTE | 2018-10-05 19:17 | NUR ---
ED Nurse Note: Received report from Aiyana/JUAN ANTONIO. Pt is A/OX 4. VSS, will continue to monitor.
[2018-10-05 19:20] VITALS: BP 120/82
--- NOTE | 2018-10-05 19:20 | NUR ---
ER DISCHARGE NOTE: Patient is cleared to be discharged per Kirti Kenny/ YUNIOR. Pt is A/O x 4 on room air with stable vital signs. Pt was given dc and prescription instructions and was able to verbalize understanding. Pt's ID band removed. Pt is able to ambulate with steady gait and pt took all belongings. Accompanied by his family. Addendum: 10/06/18 at 0250 by JESSENIA ER DISCHARGE NOTE: Patient is cleared to be discharged per Kirti Kenny/ YUNIOR. Pt is A/O x 4 on room air with stable vital signs. Pt was given dc and prescription instructions and was able to verbalize understanding. Pt's ID band removed. Pt is able to ambulate with steady gait and pt took all belongings.
== END 2018-10-05 19:20 | disposition home or self-care (01) ==
LOC: EMR 18:23
DX: R51 Headache (principal); N30.01 Acute cystitis with hematuria; R11.0 Nausea
CPT/HCPCS: 81003; 87086; 99283